=== PATIENT | female | born 1970 | race Caucasian/White ===

== ENCOUNTER → 2016-09-11 | Day surgery (SDC) | payer OTHER ==
[~2016-09-11] MED LIST: ALBUTEROL MININEB NEB; ALBUTEROL17 GM INH; AMITRYPTYLINE; AMITRYPTYLINE PO; ANORO ELLIPTA1 EACH; ATARAX PO; ATENOLOL50 MG PO; CAMBIA50 MG PO; CLARITIN10 M2; CLARITIN10 M3 PO; CLOPIDOGREL75 MG PO; GABAPENTIN600 MG PO; GLUCERNA237 M1; GRALISE600 MG; HUMULIN N100 UNIT/1; HYDROXYZINE HCL25 M1; IBUPROFEN400 MG PO; INVOKANA100 MG PO; LEVEMIR; LEVEMIR FL100 UNIT/1 SUBQ; LEVOTHYROXINE25 MCG PO; LOPID600 MG; LOPID600 MG PO; METFORMIN HCL500 M1 PO; NAPROXEN PO; NICODERM C1 PATCH .1; ONDANSETRON HCL4 M1 PO; PANTOPRAZOLE SO40 MG PO; PLAVIX; PROTONIX; PROZAC40 MG; PROZAC40 MG PO; SPIRIVA18 MCG; SPIRIVA18 MCG INH; SYNTHROID25 MCG PO; TOPAMAX50 MG PO; TRESIBA FL100 UNIT/1; [UNRECOGNIZED DRUG - OTHER]
--- NOTE | ~2016-09-11 | OR ---
Unit #: [id number] #: [id number] Patient: BEBETO ZEPEDA [id number] [address] [place], [place] [address] [id number] MR#: [id number] NAME: BEBETO ZEEPDA ROOM: Date of Procedure: 09/11/2016 Admission Date: 09/11/2016 Surgeon: Rock Michel Jr., M.D. : 1970 Attending Physician: Rock Michel Jr., M.D. Referring Physician: Rock Michel Jr., M.D. Primary Care Physician: Alirio Lowe M.D. OPERATIVE REPORT INDICATION FOR PROCEDURE The patient is a 46-year-old white female, who has been having intermittent symptoms of mid epigastric and right upper quadrant abdominal pain. She has had some nausea as well and been worked up and noted to have evidence of cholelithiasis with probable chronic cholecystitis. She is brought in this time at her request for laparoscopic cholecystectomy. She understands the procedure including the risks, including that of common duct injury, biliary leak, and bleeding, and intra-abdominal organ injury, and consents. PREOPERATIVE DIAGNOSES Chronic cholecystitis with cholelithiasis. 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 ANESTHESIA General with endotracheal intubation and 0.5% Marcaine with epinephrine locally in the port sites. PROCEDURE PERFORMED Laparoscopic cholecystectomy. DESCRIPTION OF PROCEDURE The patient was positioned in supine position. After being anesthetized and intubated, she was prepped and draped in routine fashion for laparoscopic cholecystectomy. A small infraumbilical incision was made approximately a 1 cm in length. This was carried down to the fascia. The fascia was lifted with a towel clip, and a Veress needle was introduced into the abdomen. The abdomen was inflated with CO2 gas. A 5-mm port was introduced into the abdomen followed by the camera. There was no evidence of any injury noted from placement of the Veress needle or the port. Brief intra-abdominal exploration was carried out. The patient was noted to have some adhesions in the lower abdomen probably from her previous surgery, but except for noting a slightly fatty liver chronically inflamed gallbladder. There were no other specific abnormalities. Two 5-mm ports were placed laterally and an 11-mm port just to the right of the upper midline. The gallbladder was lifted and freed up down to the area of the triangle of Calot. The cystic duct was isolated and appeared to be only 1 to 2 mm in diameter. It was hemoclipped x4 and divided. This was approximately a 1 cm from its junction with the common duct. The common Unit #: [id number] #: [id number] Patient: BEBETO ZEPEDA duct appeared normal. Cystic artery was identified, hemoclipped x3, and divided. The gallbladder was then removed from its bed with the hook cautery using a current of 20 and after it was released, it was brought out through the larger port site along with the port and the grasping clamp. The specimen was sent to pathology. The port was replaced. Subhepatic space checked. There was no evidence of any bleeding from the gallbladder bed. The clips on cystic duct and cystic artery were intact with no evidence of any leak or bleeding. At this point, the fascia in the larger port site was approximated with the neoClose technique. CO2 was expressed from the abdomen. The ports were removed. There was no evidence of any bleeding from the port sites. The port sites were irrigated and after hemostasis achieved with Bovie cautery, the skin edges were approximated with stainless-steel skin clips and skin stapling device. The port sites were injected with 0.5% Marcaine with epinephrine locally. Sterile dressings were applied externally. Estimated blood loss less than 30 mL. The patient received less than 1000 mL crystalloid solution during the procedure. Sponges and instrument counts were correct x3. No drains used. No complications. The patient was taken to the recovery room with stable vital signs and in satisfactory condition. Dictated by... Rock Mcihel Jr., M.D. JMB/mau TD: 09/12/2016 00:28 JOB #: [id number] OPERATIVE REPORT X Rock Michel MD X PROCEDURE OPERATIVE NOTE
--- NOTE | ~2016-09-11 | EKG ---
PATIENT: BEBETO ZEPEDA UNIT #: [id number] Ventricular Rate: 77 BPM Atrial Rate: 77 BPM P-R Interval: 172 ms QRS Duration: 82 ms Q-T Interval: 408 ms QTC Calculation(Bezet): 461 ms P [place]: 64 degrees Calculated R [place]: 22 degrees Calculated T [place]: -7 degrees Diagnosis Line: Normal sinus rhythm Diagnosis Line: Normal ECG Diagnosis Line: No previous ECGs available Diagnosis Line: Confirmed by TASHIA GUTIÉRREZ MD ([id number]) on Diagnosis Line: 09/13/2016 11:58:53 PM INTERPRETING MD: MARLA ECHEVERRIA
[2016-09-11 10:14] LABS: ALBUMIN SERUM 4.2 g/dL (3.5-5.0); ALKALINE PHOSPHATASE 144 U/L (32-92); ALT (SGPT) 23 U/L (10-40); AST (SGOT) 21 U/L (10-42); BILIRUBIN,TOTAL 0.1 mg/dL (0.2-2.0); BLOOD UREA NITROGEN 12 mg/dL (9-23); CALCIUM SERUM 9.1 mg/dL (8.4-10.2); CARBON DIOXIDE 21 mmol/L (22-31); CHLORIDE 107 mmol/L (100-111); CREATININE SERUM 0.6 mg/dL (0.6-1.4); GLOM FILT RATE Estimated ABOVE60 mL/min (>60); GLUCOSE FASTING 208 mg/dL (70-110); POTASSIUM 4.4 mmol/L (3.5-5.1); SODIUM 139 mmol/L (135-145)
== END | disposition home or self-care (01) ==
LOC: CSUR 08:48
PROVIDERS: Surgery
DX: K80.10 Calculus of gallbladder with chronic cholecystitis without obstruction (principal); E03.9 Hypothyroidism, unspecified; J44.9 Chronic obstructive pulmonary disease, unspecified; I11.0 Hypertensive heart disease with heart failure; I50.9 Heart failure, unspecified; E11.43 Type 2 diabetes mellitus with diabetic autonomic (poly)neuropathy; F17.210 Nicotine dependence, cigarettes, uncomplicated; K31.84 Gastroparesis; Z87.19 Personal history of other diseases of the digestive system; Z87.01 Personal history of pneumonia (recurrent); Z90.49 Acquired absence of other specified parts of digestive tract; Z90.710 Acquired absence of both cervix and uterus; Z98.51 Tubal ligation status; Z98.41 Cataract extraction status, right eye; Z98.42 Cataract extraction status, left eye; Z88.8 Allergy status to other drugs, medicaments and biological substances; Z79.899 Other long term (current) drug therapy; Z79.02 Long term (current) use of antithrombotics/antiplatelets; Z86.2 Personal history of diseases of the blood and blood-forming organs and certain disorders involving the immune mechanism; Z86.73 Personal history of transient ischemic attack (TIA), and cerebral infarction without residual deficits; Z82.5 Family history of asthma and other chronic lower respiratory diseases; Z82.61 Family history of arthritis; Z83.42 Family history of familial hypercholesterolemia; Z82.49 Family history of ischemic heart disease and other diseases of the circulatory system; Z83.3 Family history of diabetes mellitus
CPT/HCPCS: 80053; 82947; 88304; 93005; J0330; J0690; J1650; J2250; J2405; J2710; J3010

== ENCOUNTER 2017-03-22 17:36 | Emergency (ER) | payer OTHER ==
[~2017-03-22] VITALS: Ht 149.9 cm; Wt 50.8 kg
[~2017-03-22 17:36] MED LIST changes: -ANORO ELLIPTA1 EACH; -TRESIBA FL100 UNIT/1
[2017-03-22] MEDS ORDERED: TRESIBA FL100 UNIT/1 (17:49)
[2017-03-22] MEDS ORDERED: ANORO ELLIPTA1 EACH (17:51)
== END 2017-03-22 19:34 | disposition home or self-care (01) ==
LOC: SED 17:36
DX: Z48.815 Encounter for surgical aftercare following surgery on the digestive system (principal); E03.9 Hypothyroidism, unspecified; J44.9 Chronic obstructive pulmonary disease, unspecified; I50.9 Heart failure, unspecified; K31.84 Gastroparesis; Z79.899 Other long term (current) drug therapy
CPT/HCPCS: 99282